=== PATIENT | male | born 2000 | race Caucasian/White ===

== ENCOUNTER 2019-06-28 19:29 | Emergency (ER) | payer OTHER ==
[2019-06-28] MEDS ORDERED: ONDANSETRON 4 MG/2 ML VIAL ONE (20:17)
[2019-06-28] MEDS ORDERED: MEPERIDINE HCL 25 MG/0.5 ML ONE ×2 (20:17→22:56)
--- NOTE | 2019-06-28 20:44 | RAD REPORT ---
EXAM DESCRIPTION: CT - Head Brain Wo Cont - 06/28/2019 8:25 pm CLINICAL HISTORY: Headache COMPARISON: None. TECHNIQUE: Computed axial tomography of the head was obtained. IV contrast was not requested. All CT scans are performed using dose optimization technique as appropriate and may include automated exposure control or mA/KV adjustment according to patient size. FINDINGS: An intracranial bleed is not seen . The ventricles are normal in caliber. No extra-axial fluid collection is noted. Fluid within the sinuses/ mastoids is not seen. IMPRESSION: No acute intracranial abnormality is seen. If patient's symptoms persist MRI of the bra in would be recommended.
[2019-06-28 20:48] LABS: Absolute Lymphocytes (CBC) 2.6 K/uL (0.7-4.9); Basophils % 0.7 % (0-1.3); Lymphocytes % 34.9 % (15.3-44.8); MPV 9.9 fL (7.6-11.3); RBC Red Blood Cell Count 5.47 M/uL (4.33-5.43)
--- NOTE | 2019-06-28 20:48 | RAD REPORT ---
EXAM DESCRIPTION: CT - C Spine Wo Con - 06/28/2019 8:25 pm CLINICAL HISTORY: Neck pain/radiculopathy COMPARISON: None. TECHNIQUE: Computed axial tomography of the cervical spine were obtained with sagittal and coronal r econstruction images generated and reviewed. All CT scans are performed using dose optimization technique as appropriate and may include automated exposure control or mA/KV adjustment according to patient size. FINDINGS: A cervical fracture is not seen No dislocation No high-grade central/foraminal stenosis . The evaluation of spinal cord is limited on this exam without visualization of a gross abnormality IMPRESSION: A cervical fracture is not seen. If the patient continues have symptoms to suggest spinal cord/spinal canal pathology then MRI would b e recommended.
[2019-06-28 20:49] LABS: Potassium 3.5 mmol/L (3.5-5.1)
--- NOTE | 2019-06-28 20:55 | RAD REPORT ---
EXAM DESCRIPTION: CTThoracic Spine W/o Cont06/28/2019 8:25 pm CLINICAL HISTORY: Back pain with radiculopathy COMPARISON: None TECHNIQUE: Computed axial tomography of thoracic spine was obtained with coronal and sagittal recons truction. All CT scans are performed using dose optimization technique as appropriate and may include automated exposure control or mA/KV adjustment according to patient size. FINDINGS: No fracture is seen. No dislocation is noted. Significant central/foraminal stenosis is not noted. IMPRESSION: Negative for a thoracic fracture If the patient has clinical symptoms to suggest spinal cord/spinal canal pathology then MRI would be recommended.
[2019-06-28 22:29] LABS: Appearance CLEAR (CLEAR); Body Fluid Source CSF; Color of fluid Colorless (COLORLESS); Fluid Total Volume 8 ml
[2019-06-28 22:32] LABS: Body Fluid WBC 0 /mm^3
[2019-06-28 22:33] LABS: CSF Glucose 58 mg/dL (40-70)
[2019-06-28 22:43] LABS: Appearance CLEAR (CLEAR); Body Fluid Source CSF; Color of fluid Colorless (COLORLESS)
[2019-06-28 22:50] LABS: Body Fluid WBC 1 /mm^3
--- NOTE | 2019-06-28 22:50 | ER ---
Nurse's Notes [facility] Name: Pelon Potter Age: 18 yrs Sex: Male : 2000 Arrival Date: 06/28/2019 Time: 19:31 Bed 24 Private MD: Diagnosis: Neck pain;Upper back pain Presentation: 06/27 19:42 Chief complaint: Patient states: Neck pain started 20 minutes ago. Denies recent injury ca1 to neck. Radiates down to the spine at the level of the shoulder blades. History of severe neck compression and spinal concussion in between shoulder blades (summer). Coronavirus screen: Proceed with normal triage. Patient denies a cough. Patient denies shortness of breath or difficulty breathing. Patient denies measured and/or subjective temperature greater than 100.4F prior to today's visit. Patient denies travel on a cruise ship or to a country the [facility] currently lists as an affected area. Patient denies contact with known and/or suspected case of COVID-19. Ebola Screen: Patient negative for fever greater than or equal to 101.5 degrees Fahrenheit, and additional compatible Ebola Virus Disease symptoms Patient denies exposure to infectious person. Patient denies travel to an Ebola-affected area in the 21 days before illness onset. No symptoms or risks identified at this time. Initial Sepsis Screen: Does the patient meet any 2 criteria? No. Patient's initial sepsis screen is negative. Does the patient have a suspected source of infection? No. Patient's initial sepsis screen is negative. Risk Assessment: Do you want to hurt yourself or someone else? Patient reports no desire to harm self or others. Onset of symptoms was June 28, 2019. 19:42 Method Of Arrival: Wheelchair ca1 19:42 Acuity: HAROON 4 ca1 19:42 Acuity: HAROON 3 ca1 Historical: - Allergies: 19:50 No Known Allergies; ca1 - Home Meds: 19:50 None [Active]; ca1 - PMHx: 19:50 None; ca1 - PSHx: 19:50 ganglion cyst removal; ca1 - Immunization history:: Adult Immunizations up to date. - Social history:: Smoking status: Reported history of juuling and/or vaping. - Family history:: not pertinent. - Hospitalizations: : No recent hospitalization is reported. Screenin:08 Abuse screen: Denies threats or abuse. Nutritional screening: No deficits noted. ll1 Tuberculosis screening: No symptoms or risk factors identified. Fall Risk IV access (20 points). Total [place] Fall Scale indicates No Risk (0-24 pts). Assessment: 20:10 General: Appears uncomfortable, Behavior is calm, cooperative, appropriate for age. ll1 Pain: Complains of pain in neck. 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 Full function Gait is steady, Speech is normal, Facial symmetry appears normal, Pupils are PERRLA, Intact Reports pain in neck that radiates into back between shoulder blades.. Cardiovascular: No deficits noted. Respiratory: No deficits noted. Musculoskeletal: Circulation, motion, and sensation intact. Capillary refill < 3 seconds, Range of motion: intact in all extremities, Reports pain in neck. Injury Description: no known injury or falls. 21:10 Reassessment: Patient appears in no apparent distress at this time. No changes from ll1 previously documented assessment. Patient and/or family updated on plan of care and expected duration. Pain level reassessed. Patient is alert, oriented x 3, equal unlabored respirations, skin warm/dry/pink. 22:10 Reassessment: Patient appears in no apparent distress at this time. No changes from ll1 previously documented assessment. Patient and/or family updated on plan of care and expected duration. Pain level reassessed. Patient is alert, oriented x 3, equal unlabored respirations, skin warm/dry/pink. 23:10 Reassessment: Patient appears in no apparent distress at this time. No changes from ll1 previously documented assessment. Patient and/or family updated on plan of care and expected duration. Pain level reassessed. Patient is alert, oriented x 3, equal unlabored respirations, skin warm/dry/pink. Vital Signs: 19:42 BP 144 / 81; Pulse 99; Resp 16 S; Temp 98.4(O); Pulse Ox 100% on R/A; Weight 79.38 kg ca1 (R); Height 6 ft. 0 in. (182.88 cm) (R); Pain 6/10; 22:12 BP 113 / 63; Pulse 66; Resp 17; Temp 97.6(T); Pulse Ox 98% on R/A; mt 23:39 BP 110 / 72; Pulse 63; Resp 18; Temp 97.8; Pulse Ox 100% ; Pain 6/10; ll1 19:42 Body Mass Index 23.73 (79.38 kg, 182.88 cm) ca1 ED Course: 19:31 Patient arrived in ED. ag3 19:49 Triage completed. ca1 19:50 Arm band placed on right wrist. C-collar applied. ca1 19:53 Da Ortiz MD is Attending Physician. rn 19:58 Saskia Nieves RN is Primary Nurse. ll1 20:15 Inserted saline lock: 20 gauge in right antecubital area, using aseptic technique. mt Blood collected. 20:16 First set of blood cultures drawn. mt 20:25 CT C Spine In Process Unspecified. EDMS 20:25 CT Thoracic Spine Wo Cont In Process Unspecified. EDMS 20:25 CT Head Brain wo Cont In Process Unspecified. EDMS 20:34 Second set of blood cultures drawn by ga. mt 23:08 Patient has correct armband on for positive identification. Bed in low position. Call ll1 light in reach. Side rails up X 1. 23:37 No provider procedures requiring assistance completed. IV discontinued, intact, ll1 bleeding controlled, No redness/swelling at site. Pressure dressing applied. Administered Medications: 20:39 Drug: Demerol 25 mg Route: IVP; Site: right antecubital; ll1 23:38 Follow up: Response: No adverse reaction; RASS: Alert and Calm (0) ll1 20:40 Drug: Zofran (Ondansetron) 4 mg Route: IVP; Site: right antecubital; ll1 23:38 Follow up: Response: No adverse reaction; RASS: Alert and Calm (0) ll1 22:57 Drug: Demerol 25 mg Route: IVP; Site: right antecubital; ll1 23:38 Follow up: Response: No adverse reaction; Pain is decreased; RASS: Alert and Calm (0) ll1 22:58 Drug: Decadron - Dexamethasone 10 mg Route: IVP; Site: right antecubital; ll1 23:37 Follow up: Response: No adverse reaction; RASS: Alert and Calm (0) ll1 Outcome: 22:49 Discharge ordered by . rn 23:24 Patient left the ED. ll1 23:39 Discharged to home ambulatory. ll1 23:39 Condition: stable 23:39 Discharge instructions given to patient, Instructed on discharge instructions, follow up and referral plans. medication usage, Demonstrated understanding of instructions, follow-up care, medications, Prescriptions given X 2. Signatures: Dispatcher [employer] EDMS Da Ortiz MD MD rn Thompson, Lashawn Marsh mt 3 Samara Moctezuma RN RN ca1 Lewis, Lynsay, RN RN ll1
--- NOTE | 2019-06-28 22:50 | EDPHYS ---
Physician Documentation [facility] Name: Pelon Potter Age: 18 yrs Sex: Male : 2000 Arrival Date: 06/28/2019 Time: 19:31 Bed 24 Private MD: ED Physician Da Ortiz HPI: 06/27 20:32 This 18 yrs old Male presents to ER via Wheelchair with complaints of Neck rn Pain, <24hrs Old. 20:32 The patient or guardian complains of pain. 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 Onset: The symptoms/episode began/occurred 4 hour(s) ago. Associated signs and symptoms: The patient has no apparent associated signs or symptoms, Pertinent positives: fever, Pertinent negatives: bladder incontinence, bowel incontinence, nausea, numbness, vomiting, weakness. The pain does not radiate. Modifying factors: The symptoms are alleviated by remaining still, the symptoms are aggravated by movement. Severity of symptoms: At their worst the symptoms were moderate, in the emergency department the symptoms are unchanged. The patient has experienced a previous episode. Reports old neck injury from wrestling to lower cervical and upper thoracic spine, no problems since then, today sitting on couch and noticed neck and upper back pain, feels along spine, no injury, hurts to move and twist, no radiation, + subjective fever. No focal neuro complaints. No weakness. . Historical: - Allergies: 19:50 No Known Allergies; ca1 - Home Meds: 19:50 None [Active]; ca1 - PMHx: 19:50 None; ca1 - PSHx: 19:50 ganglion cyst removal; ca1 - Immunization history:: Adult Immunizations up to date. - Social history:: Smoking status: Reported history of juuling and/or vaping. - Family history:: not pertinent. - Hospitalizations: : No recent hospitalization is reported. ROS: 20:32 Constitutional: + subjective fever. Eyes: Negative for injury, pain, redness, and transport rn, ENT: Negative for injury, pain, and discharge, Neck: + neck pain Cardiovascular: Negative for chest pain, palpitations, and edema, Respiratory: Negative for shortness of breath, cough, wheezing, and pleuritic chest pain, Abdomen/GI: Negative for abdominal pain, nausea, vomiting, diarrhea, and constipation, MS/Extremity: Negative for injury and deformity, Skin: Negative for injury, rash, and discoloration, Neuro: Negative for headache, weakness, numbness, tingling, and seizure. Exam: 20:32 Constitutional: This is a well developed, well nourished patient who is awake, alert, rn appears uncomfortable, placed in ccollar in triage. Head/Face: Normocephalic, atraumatic. Eyes: Pupils equal round and reactive to light, extra-ocular motions intact. Lids and lashes normal. Conjunctiva and sclera are non-icteric and not injected. Cornea within normal limits. Periorbital areas with no swelling, redness, or edema. Neck: Trachea midline, no masses palpated, and no cervical lymphadenopathy. + midline and pericervical tenderness that extends to thoracic spine. Cardiovascular: Regular rate and rhythm. No pulse deficits. Respiratory: No increased work of breathing, no retractions or nasal flaring. Abdomen/GI: soft, non-tender MS/ Extremity: Pulses equal, no cyanosis. Neurovascular intact. Full, normal range of motion. Equal circumference. Neuro: Awake and alert, GCS 15, oriented to person, place, time, and situation. Motor strength 5/5 in all extremities. Sensory grossly intact. Cerebellar exam normal. Vital Signs: 19:42 BP 144 / 81; Pulse 99; Resp 16 S; Temp 98.4(O); Pulse Ox 100% on R/A; Weight 79.38 kg ca1 (R); Height 6 ft. 0 in. (182.88 cm) (R); Pain 6/10; 22:12 BP 113 / 63; Pulse 66; Resp 17; Temp 97.6(T); Pulse Ox 98% on R/A; mt 23:39 BP 110 / 72; Pulse 63; Resp 18; Temp 97.8; Pulse Ox 100% ; Pain 6/10; ll1 19:42 Body Mass Index 23.73 (79.38 kg, 182.88 cm) ca1 Procedures: 21:43 Lumbar Puncture: Patient placed in left lateral decubitus position. Prepped with rn Betadine. Draped using sterile technique. Collected 8 ml's of clear fluid. Sample sent to lab. Puncture site dressed with band aid, Patient tolerated well. Single stick. MDM: 19:53 Patient medically screened. rn 22:27 Response to treatment: the patient's symptoms have markedly improved after treatment. care director rn course: Pain down to 3/10. LP performed earlier, just waiting on results. Imaging without acute findings. Labs unremarkable. If LP normal, will dc home with muscle relaxers and steroids with recommendation for outpt MRI.. 22:45 Differential diagnosis: arthritis, cervical strain, Osteoarthritis Spondylosis rn subluxation, torticollis, viral meningitis, meningitis, spinal pain. Data reviewed: vital signs, nurses notes, lab test result(s), radiologic studies, CT scan, and as a result, I will discharge patient. Counseling: I had a detailed discussion with the patient and/or guardian regarding: the historical points, exam findings, and any diagnostic results supporting the discharge/admit diagnosis, lab results, radiology results, the need for outpatient follow up, to return to the emergency department if symptoms worsen or persist or if there are any questions or concerns that arise at home. Special discussion: I discussed with the patient/guardian in detail that at this point there is no indication for admission to the hospital. It is understood, however, that if the symptoms persist or worsen the patient needs to return immediately for re-evaluation. ED course: CSF studies neg, will dc home. 06/27 20:05 Order name: CBC with Diff; Complete Time: 21: 06/27 20:05 Order name: Basic Metabolic Panel; Complete Time: 21: 06/27 20:05 Order name: Influenza Screen (a \T\ B); Complete Time: 21: 06/27 20:05 Order name: Strep; Complete Time: 21: 06/27 20:05 Order name: [place] Screen Profile; Complete Time: 21: 06/27 20:05 Order name: Procalcitonin; Complete Time: 21: 06/27 20:05 Order name: Blood Culture Adult (2) 06/27 21:17 Order name: Throat Culture [facility] 06/27 21:38 Order name: CSF Bacterial Antigens (tube 1) 06/27 21:38 Order name: Csf Culture 06/27 21:38 Order name: Fluid Cell Count,Body 06/27 21:38 Order name: Spinal Fluid Profile 06/27 21:39 Order name: CSF Bacterial Antigens (Tube 1; Complete Time: 22:45 [facility] 06/27 21:39 Order name: Body Fluid Cell Count EDMS 06/27 20:05 Order name: CT C Spine; Complete Time: 21:01 rn 06/27 20:05 Order name: CT Thoracic Spine Wo Cont; Complete Time: 21:06 rn 06/27 20:05 Order name: IV Start; Complete Time: 20:21 rn 06/27 20:05 Order name: CT Head Brain wo Cont; Complete Time: 21: rn 06/27 21:38 Order name: LP Consents; Complete Time: 22: rn 06/27 21:38 Order name: LP Setup; Complete Time: 22: rn 06/27 21:39 Order name: CSF Profile; Complete Time: 22:38 EDMS Administered Medications: 20:39 Drug: Demerol 25 mg Route: IVP; Site: right antecubital; ll1 23:38 Follow up: Response: No adverse reaction; RASS: Alert and Calm (0) ll1 20:40 Drug: Zofran (Ondansetron) 4 mg Route: IVP; Site: right antecubital; ll1 23:38 Follow up: Response: No adverse reaction; RASS: Alert and Calm (0) ll1 22:57 Drug: Demerol 25 mg Route: IVP; Site: right antecubital; ll1 23:38 Follow up: Response: No adverse reaction; Pain is decreased; RASS: Alert and Calm (0) ll1 22:58 Drug: Decadron - Dexamethasone 10 mg Route: IVP; Site: right antecubital; ll1 23:37 Follow up: Response: No adverse reaction; RASS: Alert and Calm (0) ll1 Disposition: 06/28/19 22:49 Discharged to Home. Impression: Neck pain, Upper back pain. - Condition is Stable. - Discharge Instructions: Back Pain, Adult. - Prescriptions for Cyclobenzaprine 10 mg Oral Tablet - take 1 tablet by ORAL route every 8 hours As needed; 15 tablet. Medrol (Reza) 4 mg Oral Tablets, Dose Pack - take 1 tablet by ORAL route as directed - follow package instructions; 1 packet. - Medication Reconciliation Form, Thank You Letter, Antibiotic Education, Prescription Opioid Use, Work release form form. - Follow up: Private Physician; When: As needed; Reason: Recheck today's complaints, Re-evaluation by your physician. - Problem is new. - Symptoms have improved. Signatures: Dispatcher [employer] EDDa Garcia MD MD rn Jose Elias, NYDIA Pascual RN Saskia White RN RN ll1 Corrections: (The following items were deleted from the chart) 23:24 22:49 06/28/2019 22:49 Discharged to Home. Impression: Neck pain; Upper back pain. ll1 Condition is Stable. Forms are Medication Reconciliation Form, Thank You Letter, Antibiotic Education, Prescription Opioid Use. Follow up: Private Physician; When: As needed; Reason: Recheck today's complaints, Re-evaluation by your physician. Problem is new. Symptoms have improved. rn
[2019-06-28] MEDS ORDERED: dexAMETHasone 10 MG/ML VIAL ONE (22:56)
[2019-06-28 23:31] VITALS: BP 144/81; TEMP 98.4; O2SAT 100
== END 2019-06-28 23:24 | disposition home or self-care (01) ==
LOC: ER 19:29
PROC: 009U3ZX Drainage of Spinal Canal, Percutaneous Approach, Diagnostic (ICD-10-PCS; principal; 2019-06-28)
DX: M54.2 Cervicalgia (principal); M54.9 Dorsalgia, unspecified; Z87.891 Personal history of nicotine dependence
CPT/HCPCS: 87040 ×2; 87070 ×2; 85025; 80048; 36415; 89050 ×2; 86308; 87205; 84157; 82945; 87081; 86403 ×6; 84145; 87804 ×2; 70450; 72125; 72128; 62270 ×2; 96375; 96374; 99284; J1100; J2175 ×2; J2405